=== PATIENT | female | born 1985 | race Two or more races ===

== ENCOUNTER 2023-12-16 17:01 | Emergency (ER) | payer OTHER ==
[~2023-12-16] VITALS: Ht 162.6 cm; Wt 69.9 kg
[~2023-12-16 17:01] MED LIST: NIFEDIPINE ER30 M1; PRENA1 TRUE CO1 EACH; SYNTHROID75 MCG PO
[2023-12-16] MEDS ORDERED: SYNTHROID50 MCG PO (17:10)
[2023-12-16] MEDS ORDERED: KETOROLAC TROMETHAMINE 30 MG VIAL IV ONE (17:30)
[2023-12-16] MEDS ORDERED: 0.9 % SODIUM CHLORIDE 1,000 ML IV SCH (17:30)
[2023-12-16] MEDS ORDERED: DIPHENHYDRAMINE HCL 50 MG/ML VIAL 1ML IV ONE (17:30)
[2023-12-16] MEDS ORDERED: CEFTRIAXONE SODIUM 1,000 MG VIAL IV ONE (17:30)
[2023-12-16] MEDS ORDERED: ONDANSETRON HCL 2 MG/ML VIAL IV ONE (17:30)
[2023-12-16] MEDS ORDERED: METHYLPREDNISOLONE SOD SUCC 125 MG VIAL IV ONE (17:30)
[2023-12-16 18:44] LABS: HEMATOCRIT 42.8 % (36.0-45.00); HEMOGLOBIN 14.3 g/dL (12.0-15.00); MEAN CELL VOLUME 89.4 fL (80.00-100.00); MEAN CORPUSCULAR HGB CONC 33.5 g/dl (32.0-36.0); PLATELET COUNT 278 K/uL (150-450); RED BLOOD COUNT 4.79 M/uL (4.00-6.00); RED CELL DISTRIBUTION WIDTH 13.7 % (11.5-14.5)
[2023-12-16 19:05] LABS: PARTIAL THROMBOPLASTIN TIME 27.3 SECONDS (22.0-34.0); PROTHROMBIN TIME 10.9 SECONDS (9.0-11.5)
[2023-12-16 19:13] LABS: ALBUMIN 3.7 gm/dL (3.4-5.0); BILIRUBIN TOTAL 0.29 mg/dL (0.3-1.2); CREATININE SERUM 0.8 mg/dL (0.55-1.02); GFR 81.16; GLOBULINA 3.9 G/DL (2.4-3.5); POTASSIUM 3.92 mEq/L (3.5-5.1); TOTAL PROTEIN 7.6 gm/dL (6.4-8.2)
[2023-12-16 19:37] LABS: PH,URINE 5.5 (5.0-8.0); URINE APPEARANCE Clear; URINE BILIRRUBIN Negative (NEGATIVE); URINE BLOOD Negative; URINE COLOR Yellow; URINE GLUCOSE Negative (NEGATIVE); URINE KETONE Trace (NEGATIVE); URINE LEUKOCYTE Small; URINE NITRATE Negative; URINE PROTEIN Negative (NEGATIVE); URINE UROBILINOGEN 0.2 E.U./dl
[2023-12-16 19:43] LABS: URINE BACTERIA 655.1 uL (0.0-1933); URINE EPITHELIAL CELLS 35.7 uL (0.0-38.8); URINE RBC 4.8 uL (0.0-20.8); URINE WBC 63.6 uL (0.0-23.2)
[2023-12-16 19:46] LABS: URINE CAST 0.15 uL (0.0-1.40)
[2023-12-16] MEDS ORDERED: DICLOFENAC SODI75 MG PO (21:41)
== END 2023-12-16 21:55 | disposition home or self-care (01) ==
LOC: ER 17:03
PROVIDERS: General Practice
DX: R10.31 Right lower quadrant pain (principal); Z91.013 Allergy to seafood
CPT/HCPCS: 36415; 74177; 96365; 96366; 99284; J0696; J1200; J1885; J2405; J3490; J7030; Q9965